=== PATIENT | male | born 1975 | race Caucasian/White ===

== ENCOUNTER 2018-07-22 14:02 | Outpatient (CLI) | payer OTHER ==
[~2018-07-22 14:02] MED LIST: ADDERAL20 MG ORAL; LEXAPRO10 MG ORAL; OMEPRAZOLE MAGN20 MG PO; TRUVADA1 TAB ORAL
[2018-07-22 14:14] VITALS: BP 139/79
--- NOTE | 2018-07-22 14:41 | General Progress Note ---
Assessment/Plan Problem List: (1) Colon polyps ICD Codes: K63.5 - Polyp of colon SNOMED: 94991540 (2) Gastritis ICD Codes: K29.70 - Gastritis, unspecified, without bleeding SNOMED: 7699460 (3) Hiatal hernia ICD Codes: K44.9 - Diaphragmatic hernia without obstruction or gangrene SNOMED: 07290002 Assessment/Plan: repeat colonoscopy in 5 years align ppi RTC 3 months Subjective ROS Limited/Unobtainable: Yes Allergies: Coded Allergies: No Known Allergies (Unverified , 06/10/18) Objective General Appearance: alert EENT: normal ENT inspection Neck: supple Cardiovascular: normal rate Respiratory/Chest: lungs clear Abdomen: normal bowel sounds, non tender, soft Extremities: non-tender Freddy Mendenhall MD July 22, 2018 14:41
== END 2018-07-22 15:55 | disposition home or self-care (01) ==
LOC: PAN 14:02
DX: K63.5 Polyp of colon (principal); K29.70 Gastritis, unspecified, without bleeding; K44.9 Diaphragmatic hernia without obstruction or gangrene
CPT/HCPCS: 99213